=== PATIENT | female | born 1980 | race Caucasian/White ===

== ENCOUNTER 2016-12-05 01:17 | Emergency (ER) | payer OTHER ==
[~2016-12-05] VITALS: Ht 160 cm; Wt 83.2 kg
[~2016-12-05 01:17] MED LIST: ACET-749 PO; BUPR75TA8 PO; CLON1TAB3 PO; HALO5TAB PO; LEVE500T13 PO; QUET1TAB32 PO
[2016-12-05 01:24] VITALS: Ht 160 cm; Wt 83.2 kg
[2016-12-05] MEDS ORDERED: KETOROLAC TROMETHAMINE 60 MG/2 ML VIAL IM STA (02:04)
--- NOTE | 2016-12-05 02:08 | EMERGENCY ROOM VISIT NOTE ---
History Report prepared by Mary: Amanda Hodge Under the Supervision of: Dr. Pauline Crocker D.O. 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 The patient rates her pain as a 10/10 in severity. The patient states that she fell in her kitchen on oil and landed on her right hip. She states she has baseline right hip pain due to arthritis but that it has been worse recently. The patient states she takes tramadol for her arthritis but that it does not relieve the pain. The patient states along with her hip pain she has been experiencing and headache and nausea starting 2 days ago. The patient state that she has been walking on the hip but that movement increases her pain. The patient denies any problems with her bowels or urinary symptoms. Source of History: patient Onset: 4 days BAR POINTER Symptom Intensity: 10/10 Timing: other (persistent) Modifying Factors (Relieving): movement Associated Symptoms: + headache, + nausea, No urinary symptoms Note: Patient denies any problems with her bowel movements. Review of Systems See HPI for pertinent positives & negatives. A total of 10 systems reviewed and were otherwise negative. Past Medical & Surgical Medical Problems: (1) Arthritis Family History Seizure disorder Social History Smoking Status: Current Every Day Smoker Marital Status: Occupation Status: unemployed Current/Historical Medications Scheduled Bupropion Hcl (Wellbutrin), 75 MG PO QAM Haloperidol (Haldol), 2.5 MG PO QAM Haloperidol (Haldol), 5 MG PO HS Levetiracetam (Keppra), 500 MG PO HS Quetiapine Fumarate (Seroquel), 50 MG PO HS Scheduled PRN Clonazepam (Klonopin), 1 MG PO BID PRN for Anxiety Tramadol (Ultram), 50 MG PO Q8H PRN for Pain Allergies Coded Allergies: No Known Allergies (Unverified , 12/05/16) Physical Exam Vital Signs Date Time Temp Pulse Resp B/P Pulse Ox O2 Delivery O2 Flow Rate FiO2 12/05/16 02:30 37.2 85 20 128/75 99 12/05/16 01:24 37.2 85 20 128/75 99 Room Air Physical Exam HEENT: Head - normocephalic and atraumatic Pupils are equal, round, and reactive to light. Extraocular eye muscles are intact, and sclera are anicteric. Nose - moist nasal mucosa without discharge. Mouth - moist buccal mucosa. Oropharynx is nonerythematous and there is no tonsillar exudate or edema noted. Neck: Supple; no JVD, nuchal rigidity, cervical lymphadenopathy. Heart: Regular rate and rhythm. There is a normal S1 and S2 with no murmurs, clicks, or gallops appreciated. Lungs: Clear to auscultation bilaterally with no wheezes, rales, or rhonchi. Abdomen: Soft, completely nontender, nondistended, with good bowel sounds. There are no palpable pulsatile masses or hepatosplenomegaly. There is no guarding, rigidity, or rebound noted. Extremities: No evidence of cyanosis, clubbing, or edema. There are easily palpable peripheral pulses. Pain to palpation over right hip and right hemipelvis and right back with even light palpation. Skin: warm and dry with good turgor and no rashes. Medical Decision & Procedures Medications Administered Medications (Trade) Dose Ordered Sig/Rocky Route Start Time Stop Time Status Last Admin Dose Admin Ketorolac Tromethamine (Toradol Inj) 60 mg NOW STAT IM 12/05/16 02:04 12/05/16 02:06 DC 12/05/16 02:10 60 MG Ondansetron HCl (Zofran Odt) 4 mg ONE ONCE PO 12/05/16 02:15 12/05/16 02:16 DC 12/05/16 02:10 4 MG Oxycodone/ Acetaminophen (Percocet 5-325mg Tab) 1 tab NOW ONCE PO 12/05/16 03:00 12/05/16 03:01 DC 12/05/16 02:52 1 TAB Procedure Medications Administered: Oxycodone/ Acetaminophen Ondansetron HCl Ketorolac Tromethamine ED Course 0200: Past medical records reviewed. The patient was evaluated in room A9B. A complete history and physical exam was performed. 0204: Ordered Toradol Inj 60 mg IM. 0215: Ordered Zofran Odt 4 mg PO. 0245: I reevaluated the patient and she states she is still having severe right hip pain. 0300: Ordered Percocet 5-325 mg Tab 1 tab PO. 0330: The patient will be discharged home at this time. She was encouraged to follow-up with her PCP if the symptoms persisted. Medical Decision The patient is a 36 year old female who presents to the ED with right hip pain. Differential diagnosis includes hip contusion, low back strain, acute exacerbation of right hip pain. The patient seems to have a long-standing history of right hip pain secondary to arthritis. She explains that her doctor has talked to her about possible hip replacement. Unfortunately, the patient suffered a fall 4 days ago landing on the right hip. She has had an exacerbation of her chronic symptoms. The patient has been taking her tramadol at home with no relief. She was given Toradol here with no relief from her symptoms. She was then given 1 Percocet by mouth. The patient traveled here from [place]. She told us multiple times that she did not like the care she receives at [facility] and that is why she traveled here. I've asked the patient follow up with her PCP and/or orthopedics if the pain persists. Impression Primary Impression: Right hip pain Scribe Attestation The scribe's documentation has been prepared under my direction and personally reviewed by me in its entirety. I confirm that the note above accurately reflects all work, treatment, procedures, and medical decision making performed by me. Departure Information Dispostion Home / Self-Care Referrals No Doctor, Assigned (PCP) Forms HOME CARE DOCUMENTATION FORM, IMPORTANT VISIT INFORMATION, WORK / SCHOOL INSTRUCTIONS Patient Instructions My [facility] Additional Instructions Rest the right hip and pelvis Take tramadol as directed for pain. If this is not strong enough, follow up with PCP. You may need to follow up with Ortho for chronic pain
[2016-12-05] MEDS ORDERED: ONDANSETRON 4MG OD TAB PO ONE (02:15)
[2016-12-05 02:30] VITALS: BP 128/75; PULSE 85; TEMP 37.2; O2SAT 99
[2016-12-05] MEDS ORDERED: TRAM-10 PO (02:37)
[2016-12-05] MEDS ORDERED: OXYCODONE/ACETAMINOPHEN 5-325 TAB PO ONE (03:00)
== END 2016-12-05 02:30 | disposition home or self-care (01) ==
LOC: C.EDB 01:19 → C.EDA 02:30
DX: M25.551 Pain in right hip (principal); W01.0XXA Fall on same level from slipping, tripping and stumbling without subsequent striking against object, initial encounter; Y92.010 Kitchen of single-family (private) house as the place of occurrence of the external cause; M19.90 Unspecified osteoarthritis, unspecified site; Z82.0 Family history of epilepsy and other diseases of the nervous system; F17.210 Nicotine dependence, cigarettes, uncomplicated; Z79.899 Other long term (current) drug therapy

== ENCOUNTER 2017-12-25 18:55 | Emergency (ER) | payer OTHER ==
[~2017-12-25] VITALS: Ht 160 cm; Wt 95.9 kg
[~2017-12-25 18:55] MED LIST changes: -ACET-749 PO; +TRAM-10 PO
[2017-12-25 18:57] VITALS: TEMP 37.2; Ht 160 cm; Wt 95.9 kg
[2017-12-25] MEDS ORDERED: OXYCODONE/ACETAMINOPHEN 5-325 TAB PO STA (19:43)
[2017-12-25] MEDS ORDERED: KETOROLAC TROMETHAMINE 60 MG/2 ML VIAL IM STA (19:43)
[2017-12-25] MEDS ORDERED: IBUP-1050 PO (19:49)
[2017-12-25] MEDS ORDERED: TYLOTC500 PO (19:49)
--- NOTE | 2017-12-25 20:39 | DIAGNOSTIC IMAGING REPORT ---
ULTRASOUND R VENOUS DOPP LOWER EXT UNILAT CLINICAL HISTORY: Right leg pain COMPARISON STUDY: No previous studies for comparison. FINDINGS: Real-time and color flow Doppler imaging were performed. Flow was seen within the femoral, popliteal and calf veins with no intraluminal thrombus demonstrated. The saphenous vein is patent. IMPRESSION: No evidence of right lower extremity DVT. Electronically signed by: Gareth Hanson M.D. 12/25/2017 8:38 PM Dictated Date/Time: 12/25/2017 8:38 PM
--- NOTE | 2017-12-25 21:21 | DIAGNOSTIC IMAGING REPORT ---
AP PELVIS AND RIGHT HIP 3 VIEWS CLINICAL HISTORY: Right hip pain COMPARISON STUDY: No previous studies for comparison. FINDINGS: No acute fractures are visualized. There are advanced osteoarthritic changes present within both hips right more severe than left. There is near total cartilaginous loss the right with subchondral acetabular sclerosis. There is a subchondral cyst within the left acetabulum. There are no acute fractures. 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 IMPRESSION: 1. No acute fractures 2. Advanced osteoarthritic changes 3. SI joint ankylosis Electronically signed by: Gareth Hanson M.D. 12/25/2017 9:20 PM Dictated Date/Time: 12/25/2017 9:19 PM
--- NOTE | 2017-12-25 21:26 | DIAGNOSTIC IMAGING REPORT ---
RIGHT KNEE 4 VIEWS CLINICAL HISTORY: R sided knee pain COMPARISON: None DISCUSSION: No acute fractures are visualized. There is a corticated loose body located posterior to the upper pole of the patella. This measures 12 mm. There is moderate irregularity of the dorsal aspect of the patella, finding which may indicate that this represents the donor site. If further evaluation is desired, an MRI of the knee would be considered the most appropriate follow-up study IMPRESSION: 1. No acute fractures 2. 12 mm loose body posterior to the upper pole of the patella. There is an equivocal corresponding patellar defect.. Electronically signed by: Gareth Hanson M.D. 12/25/2017 9:24 PM Dictated Date/Time: 12/25/2017 9:21 PM
[2017-12-25 22:09] VITALS: BP 127/75; PULSE 73; O2SAT 100
[2017-12-25] MEDS ORDERED: OXYCODONE HCL IR 5 MG TAB (IMMEDIATE RELEASE) PO STA (22:35)
[2017-12-25] MEDS ORDERED: OXYCODONE IR HOME PACK PO STA (22:35)
[2017-12-25] MEDS ORDERED: OXYC1TAB3 PO (22:36)
--- NOTE | 2017-12-25 22:37 | EMERGENCY ROOM VISIT NOTE ---
History First contact with patient: 19:03 Chief Complaint: HIP PAIN Stated Complaint: HIP PAIN, CAN'T WALK History of Present Illness The patient is a 37 year old female who presents to the Emergency Room via private vehicle accompanied by with complaints of "hip pain, cannot walk ". The patient states that she has been experiencing right low back, right hip and right leg pain. She states that she saw a doctor years ago who told her that she needed to have a hip replacement. She had x-rays performed at [place] and there was a questionable deformity. She notes electricity/ numbness feeling down the right leg and she has to use a cane for ambulation. He also has a walker at home that she uses. The pain is rated as a 10/10. She states that the hip pain started about 6 years ago. She had a surgical procedure in 2012 while in [place]. There is right knee and muscle cramping that began about 1 year ago. There is again radiation down the leg. Heat and pain meds do not help. No cauda equina syndrome symptoms. Review of Systems A complete 10-point Review of Systems was discussed with the patient, with pertinent positives and negatives listed in the History of Present Illness. All remaining Review of Systems questions can be considered negative unless otherwise specified. Past Medical/Surgical History Medical Problems: (1) Arthritis Family History Seizure disorder Social History Smoking Status: Current Every Day Smoker Marital Status: Occupation Status: unemployed Current/Historical Medications Scheduled PRN Acetaminophen (Tylenol), 1,000 MG PO Q6 PRN for Pain Ibuprofen (Advil), 400 MG PO Q6 PRN for Pain Oxycodone Ir (Roxicodone Ir), 1-2 TAB PO Q6 PRN for Pain Physical Exam Vital Signs Date Time Temp Pulse Resp B/P (MAP) Pulse Ox O2 Delivery O2 Flow Rate FiO2 12/25/17 22:09 73 18 127/75 100 Room Air 12/25/17 21:18 76 18 135/75 98 Room Air 12/25/17 18:57 37.2 104 18 123/63 98 Room Air Physical Exam VITAL SIGNS - Vital signs and nursing notes were reviewed. Stable. GENERAL -37-year-old female appearing her stated age who is in no acute distress. Communicates well with provider and answers questions appropriately. SKIN - Without rashes. No meningeal or petechial rash. HEAD - NC/AT. EYES - PERRL with EOMI bilaterally. Sclera anicteric. EARS - No deformities of external structures noted on gross examination bilaterally. NOSE - Midline and without cyanosis. No epistaxis or purulent drainage noted. Septum midline without deviation or septal hematoma noted. MOUTH/OROPHARYNX - Without perioral cyanosis. NECK - Neck with FROM. LUNGS - Chest wall symmetric without accessory muscle use, intercostals retractions, or central cyanosis. Normal vesicular breath sounds CTA B/L. No wheezes, rales, or rhonchi appreciated. CARDIAC - RRR with S1/S2. No murmur, rubs, or gallops appreciated. ABDOMEN - Abdominal contour normal without pulsations or visible masses. BS normoactive all four quadrants. No tenderness, palpable masses, hepatosplenomegaly, or ascites noted. EXTREMITIES - No clubbing or peripheral cyanosis. No pretibial edema present. Tenderness overlying the right inferior lumbar paraspinous musculature extending to the right hip down the right thigh. There is tenderness exquisitely noted at the right hip joint region. Full range of motion of the lower extremities. +5/5 strength noted in UE/LE bilaterally. NEUROLOGIC - Cranial nerves II through XII grossly intact. Sensory intact to light touch throughout. Medical Decision & Procedures ER Provider Diagnostic Interpretation: AP PELVIS AND RIGHT HIP 3 VIEWS CLINICAL HISTORY: Right hip pain COMPARISON STUDY: No previous studies for comparison. FINDINGS: No acute fractures are visualized. There are advanced osteoarthritic changes present within both hips right more severe than left. There is near total cartilaginous loss the right with subchondral acetabular sclerosis. There is a subchondral cyst within the left acetabulum. There are no acute fractures. 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 IMPRESSION: 1. No acute fractures 2. Advanced osteoarthritic changes 3. SI joint ankylosis Electronically signed by: Gareth Hanson M.D. 12/25/2017 9:20 PM Dictated Date/Time: 12/25/2017 9:19 PM RIGHT KNEE 4 VIEWS CLINICAL HISTORY: R sided knee pain COMPARISON: None DISCUSSION: No acute fractures are visualized. There is a corticated loose body located posterior to the upper pole of the patella. This measures 12 mm. There is moderate irregularity of the dorsal aspect of the patella, finding which may indicate that this represents the donor site. If further evaluation is desired, an MRI of the knee would be considered the most appropriate follow-up study IMPRESSION: 1. No acute fractures 2. 12 mm loose body posterior to the upper pole of the patella. There is an equivocal corresponding patellar defect.. Electronically signed by: Gareth Hanson M.D. 12/25/2017 9:24 PM Dictated Date/Time: 12/25/2017 9:21 PM ULTRASOUND R VENOUS DOPP LOWER EXT UNILAT CLINICAL HISTORY: Right leg pain COMPARISON STUDY: No previous studies for comparison. FINDINGS: Real-time and color flow Doppler imaging were performed. Flow was seen within the femoral, popliteal and calf veins with no intraluminal thrombus demonstrated. The saphenous vein is patent. IMPRESSION: No evidence of right lower extremity DVT. Electronically signed by: Gareth Hanson M.D. 12/25/2017 8:38 PM Dictated Date/Time: 12/25/2017 8:38 PM Medications Administered Medications (Trade) Dose Ordered Sig/Rocky Route Start Time Stop Time Status Last Admin Dose Admin Ketorolac Tromethamine (Toradol Inj) 60 mg NOW STAT IM 12/25/17 19:43 12/25/17 19:44 DC 12/25/17 20:13 60 MG Oxycodone/ Acetaminophen (Percocet 5-325mg Tab) 1 tab NOW STAT PO 12/25/17 19:43 12/25/17 19:44 DC 12/25/17 20:14 1 TAB Oxycodone HCl (Roxicodone Immediate Rel 5MG Home Pack) 1 homepack UD STAT PO 12/25/17 22:35 12/25/17 22:36 DC 12/25/17 22:49 1 HOMEPACK Oxycodone HCl (Roxicodone Immediate Rel Tab) 5 mg NOW STAT PO 12/25/17 22:35 12/25/17 22:36 DC 12/25/17 22:49 5 MG Medical Decision Patient was seen and evaluated as above in room D5. Review was performed of nursing notes and vital signs. After obtaining a thorough history and physical examination the above work up was performed. She presents with right low back pain and right hip pain. X-ray was obtained of the right hip and knee. Degenerative changes are noted. These are quite severe. Ultrasound was obtained for DVT and found to be negative. She was given Toradol IM and Percocet p.o. for pain. Her pain persisted. She was then given OxyIR as well as a home pack and a short prescription sent to her pharmacy. She had no red flags in the [place] drug monitoring system. She certainly will need to follow with orthopedics for further evaluation and management of her advanced degenerative changes. She was given a number of which she is to call first thing tomorrow morning. She is to return with worsening. No findings today suggest surgical emergency and I believe that outpatient management is warranted. Her was present and will be driving. The patient was educated upon management, had questions answered prior to discharge, and was discharged home in good condition. In the evaluation and treatment of this patient, the following differential diagnoses were considered: Hip Fracture, Hip Dislocation, Greater Trochanteric Bursitis, Musculoskeletal Pain, Lumbar Radiculopathy. Impression Primary Impression: Right leg pain Additional Impressions: Ankylosis, sacroiliac joint subchondral acetabular sclerosis Departure Information Dispostion Home / Self-Care Condition GOOD Prescriptions Oxycodone Ir (Roxicodone Ir) 5 Mg Tab 1-2 TAB PO Q6 Y for Pain, #15 TAB For Initial Treatment Prov: Nitesh Cruz PA-C 12/25/17 Referrals No Doctor, Assigned (PCP) Lam Hilliard M.D. Patient Instructions My [facility] Additional Instructions You have been treated in the Emergency Department for Knee Pain/hip pain. You have received pain medicine in the emergency department which impairs your ability to operate a vehicle. It is illegal for you to drive after receiving these medicines. You have been prescribed Oxy IR to be used for pain control. This is a narcotic medication. You cannot drive or consume alcohol while on this medicine. This medicine should only be used for pain that cannot be controlled with over-the- counter pain medicines. For pain control, you can use the following [id number] medicines (if >12 yo): - Regular strength (325mg/tab) Tylenol (acetaminophen) 2 tabs every 4-6 hours as needed. Do not exceed 12 tablets in a 24 hour period. Avoid taking more than 3 grams (3000 mg) of Tylenol per day. This includes any other sources of acetaminophen you may take on a regular basis. - Regular strength (200 mg/tab) Advil (ibuprofen) 1-2 tabs every 4-6 hours as needed. Do not exceed a dose of 3200 mg per day. If this is a recent injury (<24 hrs), ice can be applied to the area of pain for the first 3 days to help decrease pain and inflammation. Ice massages can be performed by freezing water in a paper cup, peeling back the cup to expose the ice and then massaging over the affected area. You have been provided the number for an Orthopaedic Surgeon. You should call this number as soon as possible to establish a follow-up visit from today's Emergency Department visit. Keep the knee brace in place until cleared by Orthopedics. Use the crutches you have been provided to keep ALL weight off of the knee until weight bearing is tolerable. Return to the Emergency Department if your current symptoms worsen despite treatment course outlined above. Problem Qualifiers
== END 2017-12-25 22:58 | disposition home or self-care (01) ==
LOC: C.EDB 18:59 → C.EDD 22:58
DX: M43.28 Fusion of spine, sacral and sacrococcygeal region (principal); M25.551 Pain in right hip; M79.604 Pain in right leg

== ENCOUNTER 2023-01-26 06:26 | Observation (INO) ==
--- NOTE | 2023-01-04 13:15 | PAT Medication Instructions ---
Medication Instructions Date of Service January 04, 2023 Home Medications Medication Instructions Recorded oxycodone-acetaminophen 5 mg-325 1 tab PO Q6H PRN pain #30 tabs // mg tablet (Percocet) levetiracetam 500 mg tablet 500 mg PO BID risperidone 4 mg tablet 4 mg PO BID trazodone 100 mg tablet 100 mg PO HS vortioxetine 10 mg tablet (Trintellix) 10 mg PO QAM oxycodone-acetaminophen 5 mg-325 mg tablet (Percocet) 1 tab PO Q6H PRN pain clonazepam 0.5 mg tablet 0.5 mg PO BID ASK your prescriber and surgeon risperidone 4 mg tablet 4 mg PO BID Take morning of surgery With a small sip of water, OTHERWISE NOTHING TO EAT OR DRINK AFTER MIDNIGHT: levetiracetam 500 mg tablet 500 mg PO BID vortioxetine 10 mg tablet (Trintellix) 10 mg PO QAM oxycodone-acetaminophen 5 mg-325 mg tablet (Percocet) 1 tab PO Q6H PRN pain (if needed) clonazepam 0.5 mg tablet 0.5 mg PO BID Take evening before surgery levetiracetam 500 mg tablet 500 mg PO BID trazodone 100 mg tablet 100 mg PO HS oxycodone-acetaminophen 5 mg-325 mg tablet (Percocet) 1 tab PO Q6H PRN pain (if needed) clonazepam 0.5 mg tablet 0.5 mg PO BID Other Notes If you have any questions please call us at [phone] or [phone] or [phone] or [phone]
--- NOTE | 2023-01-09 13:19 | Anesthesiology Consultation ---
Date of Service January 09, 2023 Assessment & Plan (1) Encounter for pre-operative examination: - check urine test STAT am DOS. - Outpatient joint assessment: Patient is currently scheduled for inpatient pathway. If re-evaluated pending system levels during current pandemic/surgeon requests outpatient pathway, patient is not recommended candidate for outpatient joint program from anesthesia standpoint. She is accompanied today by a friend as she expresses pt has severe anxiety regarding clinical settings. Chart Review Chart Review: Acceptable Risk for Surgery and Patient seen in Pre Admission Testing Teaching & Discussion Pre-Anesthesia Teaching/Discussion Notes: Instructed NPO after midnight before surgery, except medications with 15 cc of water. Medication instructions provided according to the PAT guidelines. History Surgery Operation Date: 01/26/23 12:50 Proposed Procedures p Right Anterior Total Hip Arthroplasty - Aaron Moses DO Operation Date: 01/26/23 12:50 Proposed Procedures p Right Anterior Total Hip Arthroplasty - Aaron Moses DO Height/Weight Height: 5 ft 3 in Weight: 81.647 kg Allergies Allergy/AdvReac Type Severity Reaction Status Date / Time No Known Allergies Allergy Verified 12/27/22 14:19 Medications Home Medications Medication Instructions Recorded Confirmed Last Taken levetiracetam 500 mg tablet 500 mg PO BID 07/24/21 12/27/22 07/24/21 risperidone 4 mg tablet 4 mg PO BID 07/24/21 12/27/22 07/24/21 trazodone 100 mg tablet 100 mg PO HS 07/24/21 12/27/22 07/23/21 vortioxetine 10 mg tablet 10 mg PO QAM 07/24/21 12/27/22 07/24/21 (Trintellix) oxycodone-acetaminophen 5 mg-325 1 tab PO Q6H PRN pain #30 tabs 12/19/22 12/27/22 Unknown mg tablet (Percocet) clonazepam 0.5 mg tablet 0.5 mg PO BID 12/27/22 12/27/22 Unknown Past Medical History Medical History Anxiety and depression Bipolar disorder GERD (gastroesophageal reflux disease) controlled, stable per pt History of blood transfusion 1998 History of epilepsy last seizure > 1 yr ago per pt Patient denies h/o stroke, heart attack, heart failure, DM, HTN, blood clots or blood transfusions. Exercise / Class Metabolic Activity III < 4 Walking/Shop/Light housework (denies chest discomfort or shortness of breath with usual activities) Past Family History Family History Other No family history of adverse response to anesthesia Past Surgical History Surgical History Cyst EXCISION RT HIP AREA? Past Anesthesia History No Hx of Anesthesia Complications and No Family Hx of Anesthesia Complications History of PONV Adult History of PONV (18 and older): Pt unsure of any PONV hx. Hx of Motion Sickness Social History Smoking Status: Current every day smoker tobacco type: cigarettes Smoking cigarettes per day: 20 CIG DAILY>ADVISED Do You Dip or Chew Tobacco: No Hx Alcohol Use: No substance use type: does not use Review of Systems Patient denies chest pain, shortness of breath, dyspnea on exertion, snoring, witnessed apneas, fever, chills, cough, wheezing, or palpitations. Physical Exam Vital Signs Vitals BP 130/86 P 112 (Pt visibly anxious in clinic, states that she becomes very anxious in clinical settings) TEMP 99.5 SP02 98% on RA RESP 17 Physical Full cervical extension range of motion without pain TMD 3.5 finger breadths Mallampati Score 2 Dentition: multiple loose or chipped teeth and several caps; denies implants or bridges Lungs: normal respiratory effort. Clear throughout to auscultation, no adventitious breath sounds Cardiac: regular rate and rhythm, no murmurs noted Carotid arteries: negative bruit bilat Lab Results Anesthesia Preop Results Results Anesthesia Widget: WBC 3.40 K/ul (4.8-10.8) L 01/09/23 Hgb 12.3 g/dl (12.0-16.0) 01/09/23 Hct 35.8 % (37.0-47.0) L 01/09/23 Plt 232 K/uL (130-400) 01/09/23 Na 140 mmol/L (136-145) 01/09/23 K 3.7 mmol/L (3.5-5.1) 01/09/23 Cl 105 mmol/L (98-107) 01/09/23 CO2 29 mmol/L (21-32) 01/09/23 BUN 4 mg/dl (6-23) L 01/09/23 Creat 0.48 mg/dl (0.6-1.2) L 01/09/23 Glucose Level 93 mg/dl (70-99(Fasting)) 01/09/23 PT 10.7 Seconds (9.0-12.0) 01/09/23 PTT 26.1 Seconds (21.0-31.0) 01/09/23 INR 1.0 (0.9-1.1) 01/09/23 Blood Type A Positive 01/09/23 Antibody Screen NEGATIVE 01/09/23 Testing Electrocardiogram Date: 01/09/23 Sinus tachycardia, rate 107 bpm Chest X-Ray Date: 01/09/23 PA and lateral chest radiographs are compared to study dated 07/24/2021. The cardiomediastinal silhouette is unremarkable. The lungs and pleural spaces are clear. There is no pneumothorax. The bony thorax appears intact. IMPRESSION: No active disease in the chest. Cervical Spine Date: 05/13/22 No acute intracranial abnormality No CT evidence of acute bony cervical injury Other Testing CT head 05/13/22 No acute intracranial abnormality No CT evidence of acute bony cervical injury COVID-19 Risk Screen Screening Information COVID-19 Screen Date: 01/09/23 Exposure 21 Days Family/Household +COVID Last 21 Days: No Exposure 10 Days Any COVID Exposure Last 10 Days: No Symptoms Last 10 Days Experienced COVID Sx Last 10 Days: No + COVID 0-90 Days COVID + in Last 0-90 Days: No
--- NOTE | 2023-01-25 14:44 | History & Physical Report ---
Date of Service January 25, 2023 Assessment & Plan (1) Osteoarthritis of right hip: We will proceed with a right anterior total of arthroplasty. Postoperatively she will be started on aspirin for DVT prophylaxis and kept overnight in the hospital for postoperative medical management. History of Present Illness Chief Complaint: Osteoarthritis of the right hip. Primary Care Provider: Jim HutchinsonDO Martin is a pleasant 42-year-old female, who has been dealing with years of bilateral hip pain with right worse than left. There are times where she can b shawn walk. She was using a walker a year ago. I had seen her in the clinic several times before. I had scheduled her for hip replacements, but she had to cancel. She was also scheduled to see an orthopedist out in [facility], who recommended a hip replacement, she did not follow through. She then saw my partner a year ago, who recommended a hip replacement because she was downgraded to a walker and she did not seek treatment for over a year. Now, she is having severe pain in her hip. She is having trouble walking. X-rays and clinical examination show worsening osteoarthritis of the hips. After failing conservative treatment, she is elected to proceed with a right anterior total of arthroplasty. Allergies Allergy/AdvReac Type Severity Reaction Status Date / Time No Known Allergies Allergy Verified 12/27/22 14:19 Home Medications Medication Instructions Recorded Confirmed Type levetiracetam 500 mg tablet 500 mg PO BID 07/24/21 12/27/22 History risperidone 4 mg tablet 4 mg PO BID 07/24/21 12/27/22 History trazodone 100 mg tablet 100 mg PO HS 07/24/21 12/27/22 History vortioxetine 10 mg tablet 10 mg PO QAM 07/24/21 12/27/22 History (Trintellix) oxycodone-acetaminophen 5 mg-325 1 tab PO Q6H PRN pain #30 tabs 12/19/22 12/27/22 Rx mg tablet (Percocet) clonazepam 0.5 mg tablet 0.5 mg PO BID 12/27/22 12/27/22 History oxycodone-acetaminophen 5 mg-325 1 tab PO Q6H PRN pain #30 tabs 01/11/23 Rx mg tablet (Percocet) Past Med/Surg History Medical History Anxiety and depression Bipolar disorder GERD (gastroesophageal reflux disease) controlled, stable per pt History of blood transfusion 1998 History of epilepsy last seizure > 1 yr ago per pt Surgical History Cyst EXCISION RT HIP AREA? Family History Other No family history of adverse response to anesthesia Social History Smoking Status: Current every day smoker Tobacco Type: Cigarettes and E-cigarettes / Vaping Cigarettes Per Day: 20 CIG DAILY>ADVISED; Do You Dip or Chew Tobacco: No; Hx Alcohol Use: No Preferred Language: Polish Patch Washer Required: No Beliefs That Will Affect Care: None Current Living Situation: Alone Current Living Situation Comment: [facility] LIVING WITH MOTHER Feels Safe at Home: Yes Safety Concerns: Feels Safe At This Time Assistive Devices: Cane and Walker Review of Systems All systems reviewed & are unremarkable except as noted in HPI & below. Physical Exam On physical examination of the right hip, she is mostly wheelchair-bound. She has very limited range of motion. Severe pain with any range of motion of her right hip.. Constitutional WD/WN, vitals as above Eyes PERRL, conjunctivae normal, anicteric sclerae ENMT external ear and nose normal, oropharynx normal Neck trachea midline, no thyromegaly Respiratory normal respiratory effort, lungs clear to auscultation Cardiovascular RRR, no murmur, no edema Gastrointestinal (Abdomen) normal bowel sounds, soft, nontender, no hepatosplenomegaly Skin no rashes, warm and dry Psychiatric A+Ox3, euthymic affect Results & Data Results & Data Laboratory Results . Diagnostic Findings X-rays of the right hip show advanced osteoarthritis with joint space narrowing, osteophyte formation, and [id number] articulation.. PG Care Time/CCT Total # of Minutes Spent Total Time Spent with Patient: Total time spent is greater than 50% in coordination of care (as documented) at patient's floor/unit and/or counseling patient: Coding Level of Care Code None Diagnoses Osteoarthritis of right hip M16.11
[~2023-01-26 06:26] MED LIST changes: +ACETAMINOPHEN 500 MG TAB PO SCH; -BUPR75TA8 PO; -CLON1TAB3 PO; +FAMOTIDINE 20 MG TAB PO SCH; +GABAPENTIN 900 MG DOSE PO SCH; -HALO5TAB PO; -LEVE500T13 PO; +LR 500ML BOLUS, THEN 15ML/HR IV SCH; +LR 60ML/HR IV SCH; +ORTHO JOINT MIX INFIL SCH; -QUET1TAB32 PO; +ROPIVACAINE 0.5% 5 MG/ML 30 ML VIAL ONE; -TRAM-10 PO; +TRANEXAMIC ACID 1,000 MG **IV Intra-op IV SCH; +TRANEXAMIC ACID 1,000 MG **IV Pre-op IV SCH; +ceFAZolin 2000MG 2,000 MG/15 ML SYR IV SCH; +dexAMETHasone 4 MG TAB PO SCH
[2023-01-26] MEDS ORDERED: MIDAZOLAM HCL 1 MG/ML 2ML VIAL ONE ×2 (07:35→07:36)
[2023-01-26] MEDS ORDERED: fentaNYL citrate PF 100 MCG/2 ML VIAL ONE (07:35)
--- NOTE | 2023-01-26 08:05 | History & Physical Bridge Note ---
Date of Service January 26, 2023 History & Physical Bridge Note I have examined the patient, reviewed the History & Physical and in the interval since the performance of the History & Physical I have noted the following changes of clinical significance: no changes noted
[2023-01-26] MEDS ORDERED: HYDROmorphone INJ 1 MG/ML SYRINGE IV PRN (08:32)
[2023-01-26] MEDS ORDERED: ATROPINE SULFATE 0.1 MG/ML 10ML SYR IV PRN (08:32)
[2023-01-26] MEDS ORDERED: KETOROLAC 30 MG/ML VIAL IV PRN (08:32)
[2023-01-26] MEDS ORDERED: ePHEDrine sulfate 50 MG/ML AMP IV PRN (08:32)
[2023-01-26] MEDS ORDERED: ONDANSETRON INJ 2 MG/ML 2 ML VIAL IV PRN ×2 (08:32→12:20)
[2023-01-26] MEDS ORDERED: ORTHO JOINT ANESTHETIC ONE (08:33)
[2023-01-26] MEDS ORDERED: LIDOCAINE 2% 2 ML VIAL/AMP(20MG/ML) INFIL ONE (09:28)
[2023-01-26] MEDS ORDERED: PROPOFOL IV EMULSION 10 MG/ML 20 ML VIAL IV ONE (09:28)
[2023-01-26] MEDS ORDERED: ONDANSETRON INJ 2 MG/ML 2 ML VIAL ONE (09:28)
--- NOTE | 2023-01-26 10:56 | Operative Report ---
PG Post Operative Report Pre & Post Diagnosis Operation Date: 01/26/23 12:50 Preoperative diagnosis: Osteoarthritis of the right hip Postop diagnosis: Osteoarthritis of the right hip I identified the patient and participated in the time-out.: Yes Procedure Operation Date: 01/26/23 12:50 Procedure: Right anterior total of arthroplasty. Surgeon Aaron Moses DO Residential Program Manager Aaron Franklin PA-C Estimated Blood Loss 250 Findings Consistent with Post-Op Diagnosis Specimens Right humeral head Description of Procedure Implants used I used a ZimmerBiomet total hip arthroplasty system with a size 4 high offset Avenir Complete stem, a 54 mm G7 cup with a 25mm screw, an E1 polyethylene liner, a 36 mm ceramic head with a +3.5 neck. Veronica arrived at the hospital for the above procedure. She was seen in the preoperative holding area and the operative extremity was identified and signed. She was given a spinal anesthetic, a preoperative antibiotic, and TXA. She was then taken back to the operating room and laid on the table in the supine position. She was given basic sedation. The operative leg was secured to a Puristst leg positioner. The hip was then prepped and draped in sterile fashion. A timeout was done and the patient and the operative extremity was properly identified. An anterior approach was used. Dissection was taken down through the fascia and the tensor muscle belly was retracted laterally and the rectus was retracted medially. The circumflex vessels were identified and ligated. The capsule was then incised and tagged for later repair. The femoral neck was then cut and the femoral head was removed. The acetabulum was exposed. Time was spent doing a complete circumferential labral release. Sequential reaming of the acetabulum up to a size 53 reamer was done. Final reamings were done under fluoroscopy to ensure appropriate version. A Biomet 54 mm G7 cup was then impacted into place. A single 25 mm screw was placed. The E1 polyethylene liner was then snapped into place. Surrounding soft tissues were then injected with 100 cc of an orthopedic pain control cocktail. The proximal femur was then exposed. Sequential broaching up to a size 4 broach was done. Off that broach a size 36 head with a +3.5 neck was trialed. The hip was reduced and fluoroscopic images showed anatomic alignment of the implants in acceptable length. The broach was removed. The final size 4 high offset Avenir Complete stem was then impacted into place. A ceramic 36 mm head with a +3.5 neck was then impacted onto the stem and the hip was reduced. Final fluoroscopic images showed anatomic alignment of the hip. The capsule was then closed with #1 Vicryl suture. A dilute betadyne lavage was then done for 3 minutes. The joint was then irrigated with normal saline solution. The fascia was closed with #1 PDS suture. Skin was closed with 2-0 Vicryl, verónica, and a Silverlon dressing. She was then transferred to a hospital bed and taken to the post anesthesia care unit in stable condition. She tolerated the procedure well. Aaron Franklin PA-C, was present for the entire procedure. He was critical for patient positioning, prepping, draping, retraction exposure, wound closure and application of sterile dressing. I attest to the content of the Intraoperative Record and any orders documented therein. Any exceptions are noted below.
--- NOTE | 2023-01-26 10:59 | Fluoroscopy Report ---
FL hip RT 1V CLINICAL HISTORY: RIGHT ANTERIOR HIP COMPARISON STUDY: Right hip radiographs December 19, 2022. FLUOROSCOPY TIME: 24 seconds. Ka, r: 3.5352 mGy FLUOROSCOPIC IMAGES: 1 FINDINGS: Fluoroscopy was provided during anterior total right hip arthroplasty. The hardware is inta ct. Alignment is anatomic. No fractures are identified. No unexpected radiopaque foreign bodies. IMPRESSION: Fluoroscopy provided during anterior total right hip arthroplasty. ACT 112: Negative or not required by law. Electronically signed by: Zeferino Alejandre M.D. 01/26/2023 10:57 AM
--- NOTE | 2023-01-26 11:56 | XRay Report ---
AP PELVIS, CROSSTABLE LATERAL RIGHT HIP History: Right total hip arthroplasty. Degenerative arthritis. Postop. FINDINGS: The patient is status post a right total hip arthroplasty. The hardware is intact. No fract ure or dislocation. Skin verónica are in place. Severe osteoarthritis within the left hip, unchanged. IMPRESSION: Right total hip arthroplasty. No evidence for hardware complication ACT 112: Negative or not required by law. Electronically signed by: Renato Farnsworth M.D. 01/26/2023 11:54 AM
--- NOTE | 2023-01-26 12:10 | Anesthesiology Progress Note ---
Date of Service January 26, 2023 Anesthesia Post Procedure Vital Signs Vital Signs: Temp Pulse Pulse Resp BP BP Pulse Ox 01/26/23 11:55 36.2 C L 70 19 107/74 99 01/26/23 11:45 74 24 99/64 L 92 01/26/23 11:35 82 21 100/72 99 01/26/23 11:25 96 H 22 97/71 L 100 01/26/23 11:19 36.2 C L 95 H 17 96/59 L 98 01/26/23 07:06 36.5 C 86 22 133/82 99 O2 Del Method O2 Flow Rate 01/26/23 11:55 Nasal Cannula 2 01/26/23 11:45 Nasal Cannula 2 01/26/23 11:35 Nasal Cannula 2 01/26/23 11:25 Oxymask 6 01/26/23 11:19 Oxymask 6 01/26/23 07:06 Room Air Pain Intensity Right Hip: Pain Intensity: 4 Transfer of Care Handoff Completed per policy Notes Mental Status: alert / awake / arousable Patient Amnestic to Procedure: Yes Nausea / Vomiting: adequately controlled Pain: adequately controlled Airway Patency, RR, SpO2: stable & adequate BP & HR: stable & adequate Hydration State: stable & adequate Neuraxial Anesthesia: was administered and sensory block is resolving Anesthetic Complications: no major complications apparent
[2023-01-26] MEDS ORDERED: METOCLOPRAMIDE HCL INJ 5 MG/ML 2 ML VIAL IV PRN (12:20)
[2023-01-26] MEDS ORDERED: bisacodyL 10 MG SUPP PR PRN (12:20)
[2023-01-26] MEDS ORDERED: HYDROmorphone INJ 0.5 MG/0.5 ML SYR IV PRN (12:20)
[2023-01-26] MEDS ORDERED: NALOXONE HCL 0.4 MG/1 ML VIAL/CARP IV PRN (12:20)
[2023-01-26] MEDS ORDERED: MAGNESIUM HYDROXIDE SUSP 30 ML UDC PO PRN (12:20)
[2023-01-26] MEDS: SODIUM CHLORIDE 0.9% 1000ML 1,000 ML IV SCH ×2 (12:43→22:55)
[2023-01-26] MEDS: KETOROLAC 30 MG/ML VIAL IV SCH ×3 (12:44→22:56)
[2023-01-26] MEDS: ACETAMINOPHEN 500 MG TAB PO SCH ×2 (13:40→22:56)
[2023-01-26] MEDS: oxyCODONE HCL IR 5 MG TAB (IMMEDIATE RELEASE) PO PRN ×2 (15:34→19:32)
[2023-01-26] MEDS: ceFAZolin 2000MG 2,000 MG/15 ML SYR IV SCH (17:59)
[2023-01-26] MEDS: clonazePAM 0.5 MG TAB PO SCH (19:32)
[2023-01-26] MEDS: ASPIRIN 81 MG ECTAB PO SCH (20:11)
[2023-01-26] MEDS: DOCUSATE SODIUM 100 MG CAP PO SCH (20:11)
[2023-01-26] MEDS: levETIRAcetam 500 MG TAB PO SCH (20:13)
[2023-01-26] MEDS: risperiDONE 2 MG TABLET PO SCH (20:13)
[2023-01-26] MEDS ORDERED: SENNA 8.6 MG TAB PO SCH (21:00)
[2023-01-26] MEDS ORDERED: traZODone HCL 100 MG TAB PO SCH (21:00)
[2023-01-27] MEDS: oxyCODONE HCL IR 5 MG TAB (IMMEDIATE RELEASE) PO PRN ×3 (01:07→13:31)
[2023-01-27] MEDS: ceFAZolin 2000MG 2,000 MG/15 ML SYR IV SCH (01:07)
[2023-01-27] MEDS: ACETAMINOPHEN 500 MG TAB PO SCH (05:13)
[2023-01-27] MEDS: KETOROLAC 30 MG/ML VIAL IV SCH ×2 (05:13→11:57)
[2023-01-27] MEDS ORDERED: AMPHETAMINE ASP/SULF/DEXTRAMPH 10 MG TAB PO SCH ×3 (06:30)
[2023-01-27] MEDS ORDERED: dexAMETHasone 4 MG TAB PO SCH (08:00)
--- NOTE | 2023-01-27 08:54 | Orthopedic Progress Note ---
Date of Service January 27, 2023 Assessment & Plan (1) Status post right hip replacement: Overall she is doing well. She is not in too much pain in the right hip. She has been up and ambulating to the bathroom. She will be seen by physical therapy today for ambulation and range of motion exercises. She is on aspirin for DVT prophylaxis. She can be discharged home later today. She will follow- up orthopedics in 2 weeks. Eulalio Martin was seen and examined at bedside this morning. Overall she is doing fairly well. She is not having too much pain in the right hip. She been up and ambulating to the bathroom. She has no complaints.. Review of Systems All systems reviewed & are unremarkable except as noted in HPI & below. Physical Exam On physical examination of the right hip, the dressing is clean and dry. Her leg is out full extension. She has active dorsiflexion plantarflexion of the right ankle.. Results & Data Results & Data Laboratory Results . Diagnostic Findings Postoperative x-rays of the right hip show the prosthesis to be in anatomic alignment without any evidence of fracture, education, or loosening. PG Care Time/CCT Total # of Minutes Spent Total Time Spent with Patient: Total time spent is greater than 50% in coordination of care (as documented) at patient's floor/unit and/or counseling patient: Coding Level of Care Code 68987 Post Operative Follow-Up Diagnoses Status post right hip replacement Z96.641
--- NOTE | 2023-01-27 08:55 | Discharge Summary ---
Date of Service January 27, 2023 Admission HPI (Per Admitting) Veronica is a pleasant 42-year-old female, who has been dealing with years of bilateral hip pain with right worse than left. There are times where she can barely walk. She was using a walker a year ago. I had seen her in the clinic several times before. I had scheduled her for hip replacements, but she had to cancel. She was also scheduled to see an orthopedist out in [facility], who recommended a hip replacement, she did not follow through. She then saw my partner a year ago, who recommended a hip replacement because she was downgraded to a walker and she did not seek treatment for over a year. Now, she is having severe pain in her hip. She is having trouble walking. X-rays and clinical examination show worsening osteoarthritis of the hips. After failing conservative treatment, she is elected to proceed with a right anterior total of arthroplasty. Admission Exam (Per Admitting) On physical examination of the right hip, she is mostly wheelchair-bound. She has very limited range of motion. Severe pain with any range of motion of her right hip.. Principal Diagnosis Same as "Discharge Diagnosis" noted below under Discharge Instructions. Discharge Exam On physical examination of the right hip, the dressing is clean and dry. Her leg is out full extension. She has active dorsiflexion plantarflexion of the right ankle.. Discharge Data Procedures Performed Operation Date: 01/26/23 12:50 <No data on this case meets the specified criteria> Ordered Studies 01/26/23 09:00 FL hip RT 1V Routine Hospital Course (1) Status post right hip replacement: On January 26, [address] [facility] and underwent a right hip replacement without complication. She had a spinal anesthetic. Postoperatively she was started on aspirin for DVT prophylaxis and transferred to the general orthopedic floors. Her hospital course was uneventful. On postop day #1, her vital signs were stable and her pain was well controlled. She was able to participate well with physical therapy doing ambulation and range of motion exercises. She was then discharged home. She will follow-up with orthopedics in 2 weeks. PG Care Time/CCT Total # of Minutes Spent Total Time Spent with Patient: Total time spent is greater than 50% in coordination of care (as documented) at patient's floor/unit and/or counseling patient: Discharge Plan Discharge Items Patient Disposition: Home - Home Health Services Reason For Visit: POST SURGICAL CARE Discharge Diagnosis: Right hip replacement Activity: Per Instructions section Non-emergency contact: Surgeon Call non-emergency contact if: your wound has increased redness and your wound has increased drainage Follow-up/Referrals: Jim Hutchinson DO [Primary Care Provider] - Diet: Regular Addtl Attending Provider Instructions: Activity and Therapy Recommendations: * If you are using [facility] then therapy will be provided at your home until they feel you have accomplished all of your goals. * If you are using [facility] then Physical Therapy will be provided until they feel you are ready to start Outpatient Physical Therapy. * If you are not using home therapy then Outpatient Physical Therapy should start about 3-5 days from your day of surgery. Therapy will last about 6-10 weeks * You were shown a series of exercises in the hospital. Do these exercises three times each day including the exercises you were shown in physical therapy. * Get up and walk several times each day.~ For the first four weeks, try not to stand or walk for more than one hour at a time. If you do stand or walk for more than one hour, you will not hurt anything, but your leg will likely swell.~~ * As you feel comfortable, you may change from the walker or crutches to a cane and~then to independent walking. Medications: * Narcotic You will likely be sent home from the hospital with a prescription for the narcotic pain medication that worked best throughout your stay. * Celebrex -take Celebrex twice a day for 2 weeks. This is an anti- inflammatory. * Aspirin Most patients will be required to take Aspirin 81mg twice a day for 6 weeks after surgery. This is obtained [id number] and a prescription is not necessary. * Other medications may be prescribed for specific circumstances. If you have any questions, please call the office at . * Resume previous home medications unless otherwise instructed TEDs/Elastic Stockings: The white elastic stockings help limit swelling and prevent blood clots from forming in your legs. The more you wear them, the more they work. Wear them for six weeks. Dressing Care: Leave the Silverlon dressing in place for 7 days. After 7 days you may remove the dressing. If the incision is not draining then you may leave the verónica open to air. If there is a little bit of drainage or if the verónica are getting stuck on your clothing then cover the incision with a dry dressing. The verónica will be removed at your 2 week follow-up appointment. Showering: You may shower with the Silverlon dressing in place. Do not let the shower spray hit the dressing directly. Pat the Silverlon dressing dry. If the dressing becomes wet underneath, then simply remove the dressing. Keep the incision dry until you are 7 days out from the day of surgery. After 7 days you may remove the Silverlon dressing and shower with the verónica exposed. Let soapy water run over the verónica and pat them dry. Do not scrub or soak the incision. Things To Watch For: * Drainage from the incision site that occurs more than one week after your s urgery. * Increased redness at the incision site. * Fever above 102 degrees Fahrenheit. * Unusual chest pain or shortness of breath. * Call [facility] at with any of the above problems Follow-Up Visit: Follow-up with Dr. Moses's PA (Aaron Franklin) 2-3 weeks after your day of surgery. He will remove your verónica and answer any questions. If you have any additional questions or concerns, Dr Moses is usually in the office at the same time and will be available An appointment was probably scheduled when you signed-up for surgery in the [facility]. If you have any questions call Office Instructions: More detailed instructions as well as Frequently Asked Questions were provided in a folder by our office when you signed-up for surgery. Please review these instructions when you get home. If you have any further questions or concerns, please feel free to call the office at [phone] Pending Studies at Discharge: No Stand-Alone Forms: My [facility] [employer], Smoking Cessation Medications and DC Order Prescriptions: New aspirin 81 mg Tablet,Delayed Release (Dr/Ec) 81 mg PO BID 42 Days Qty: 84 0RF celecoxib [Celebrex] 200 mg capsule 200 mg PO BID Qty: 28 0RF Rx Instructions: Take 1 pill twice a day for 2 weeks after surgery Continued levetiracetam 500 mg tablet 500 mg PO BID risperidone 4 mg tablet 4 mg PO BID trazodone 100 mg tablet 100 mg PO HS Trintellix 10 mg tablet 10 mg PO QAM clonazepam 0.5 mg Tablet 0.5 mg PO BID Rx Instructions: administer 30 minutes before bedtime Adderall tablet 30 mg PO 1XD oxycodone-acetaminophen [Percocet] 5-325 mg tablet 1 tab PO Q6H PRN (Reason: pain) Qty: 30 0RF Discontinued oxycodone-acetaminophen [Percocet] 5-325 mg tablet 1 tab PO Q6H PRN (Reason: pain) Qty: 30 0RF Admission Data Admit Date/Time: 01/26/23 11:20 Attending Provider: Aaron Moses Admit Provider: Aaron oMses Primary Care Provider: Jim Hutchinson
[2023-01-27] MEDS ORDERED: MULTIVITAMIN TAB PO SCH (09:00)
[2023-01-27] MEDS: levETIRAcetam 500 MG TAB PO SCH (09:16)
[2023-01-27] MEDS: risperiDONE 2 MG TABLET PO SCH (09:16)
[2023-01-27] MEDS: DOCUSATE SODIUM 100 MG CAP PO SCH (09:16)
[2023-01-27] MEDS: ASPIRIN 81 MG ECTAB PO SCH (09:17)
[2023-01-27] MEDS: clonazePAM 0.5 MG TAB PO SCH (09:19)
== END 2023-01-27 14:45 | disposition home health service (06) ==
LOC: 3E 06:26 → ASU 06:26